=== PATIENT | male | born 2000 | race Hispanic/Latino ===

== ENCOUNTER 2021-03-31 12:11 | Observation (INO) | payer OTHER ==
[~2021-03-31] VITALS: Ht 162.6 cm; Wt 78.8 kg
[2021-03-31 13:59] LABS: BASO # 0.1 10^3/uL (0.0-0.2); BASO % 0.6 % (0.0-1.0); EOS # 0.2 10^3/uL (0.0-0.5); EOS % 2.4 % (0.0-3.0); HEMATOCRIT 43.7 % (42.0-52.0); HEMOGLOBIN 14.4 g/dl (13.5-17.5); LYMPH # 1.8 10^3/uL (1.5-5.0); LYMPH % 19.1 % (24.0-44.0); MEAN CORPUSCULAR HEMOGLOBIN 30.4 pg (27.0-33.0); MEAN CORPUSCULAR VOLUME 92.4 fl (80.0-96.0); MONO # 0.9 10^3/uL (0.0-0.8); MONO % 9.8 % (2.0-8.0); NEUTROPHILS # 6.4 10^3/uL (1.5-8.5); NEUTROPHILS % 67.8 % (36.0-66.0); PLATELET COUNT, AUTOMATED 388 10^3/uL (150-450); RED BLOOD COUNT 4.73 10^6/uL (4.30-6.10); WHITE BLOOD COUNT 9.4 10^3/uL (4.0-10.0)
[2021-03-31] MEDS ORDERED: PENI1TAB17 PO (14:08)
[2021-03-31] MEDS ORDERED: IBUP-1022 PO (14:08)
[2021-03-31 14:36] LABS: ALBUMIN 3.6 GM/DL (3.2-5.2); BILIRUBIN,DIRECT 0.2 MG/DL (0.0-0.2); BILIRUBIN,TOTAL 0.5 MG/DL (0.2-1.0); C REACTIVE PROTEIN QUANTITATIV 4.26 MG/DL (0.00-0.30); TOTAL PROTEIN 7.4 GM/DL (6.4-8.2)
[2021-03-31] MEDS ORDERED: ISOVUE-370 76% 100ML VIAL As Ordered ONE (14:38)
[2021-03-31] MEDS ORDERED: NS 1,000 ML IV ONE (14:40)
[2021-03-31] MEDS ORDERED: LR 1,000 ML IV SCH ×2 (17:25→20:50)
[2021-03-31] MEDS ORDERED: CLINDAMYCIN 900 MG in IV 1 EA IV ONE (17:25)
[2021-03-31] MEDS ORDERED: dexameTHASONE 20MG/5ML VIAL (J1100 PER 1MG) IV ONE (17:25)
[2021-03-31] MEDS ORDERED: MORPHINE 4 MG/ML 1ML VIAL/SYRINGE (J2270) IV ONE (17:25)
[2021-03-31] MEDS ORDERED: IBUP80TA PO (17:43)
[2021-03-31] MEDS ORDERED: HOME MED LIST COMPLETE! XX SCH (17:45)
[2021-03-31] MEDS ORDERED: ONDANSETRON 4MG/2ML VIAL IV PRN ×2 (18:30→20:50)
[2021-03-31] MEDS ORDERED: MORPHINE 4 MG/ML 1ML VIAL/SYRINGE (J2270) IV PRN (18:30)
[2021-03-31] MEDS ORDERED: LIDOCAINE W/EPINEPHRINE 1% 20ML VIAL As Ordered ONE (19:04)
[2021-03-31] MEDS ORDERED: CLINDAMYCIN INJ 900MG/6ML VIAL As Ordered ONE (19:05)
[2021-03-31] MEDS ORDERED: dexameTHASONE 4 MG/ML 1ML VIAL (J1100 PER 1MG) As Ordered ONE (20:12)
[2021-03-31] MEDS ORDERED: propofoL 200 MG/20 ML VIAL As Ordered ONE (20:12)
[2021-03-31] MEDS ORDERED: MIDAZOLAM INJ 2MG/2ML VIAL (J2250 PER 1MG) As Ordered ONE (20:12)
[2021-03-31] MEDS ORDERED: NALOXONE INJ 0.4MG/1ML VIAL (J2310 PER 1MG) As Ordered ONE (20:12)
[2021-03-31] MEDS ORDERED: LIDOCAINE 2% 100MG/5ML SDV (FOR ANES.) As Ordered ONE (20:12)
[2021-03-31] MEDS ORDERED: fentaNYL 250 MCG/5 ML INJECTION As Ordered ONE (20:12)
[2021-03-31] MEDS ORDERED: ACETAMINOPHEN 1000MG 100ML IV BTL (OFIRMEV) (J0131 PER 10MG) As Ordered ONE (20:12)
[2021-03-31] MEDS ORDERED: SUGAMMADEX SODIUM 500 MG/5 ML VIAL (BRIDION) As Ordered ONE (20:12)
[2021-03-31] MEDS ORDERED: ROCURONIUM BROMIDE 50 MG/5 ML VIAL As Ordered ONE (20:12)
[2021-03-31] MEDS ORDERED: ONDANSETRON 4MG/2ML VIAL As Ordered ONE (20:12)
[2021-03-31] MEDS ORDERED: HYDROMORPHONE HCL 0.5 MG/ 0.5 ML SYRINGE (J1170 PER 1) IV PRN (20:50)
[2021-03-31] MEDS ORDERED: fentaNYL 100 MCG/2 ML INJECTION IV PRN (20:50)
[2021-03-31] MEDS ORDERED: oxyCODONE 5MG TAB PO PRN (20:50)
[2021-03-31 21:00] VITALS: BP 129/69
[2021-03-31 21:30] VITALS: BP 115/55
[2021-03-31 22:21] VITALS: BP 116/62
[2021-03-31 23:31] VITALS: BP 115/62
[2021-04-01] VITALS: BP 117/60
[2021-04-01] MEDS: CLINDAMYCIN 600 MG in IV 1 EA IV SCH ×2 (01:01→07:38)
[2021-04-01 01:26] VITALS: BP 122/62
[2021-04-01 03:59] VITALS: BP 116/57
[2021-04-01 07:49] LABS: HEMOGLOBIN 14.6 g/dl (13.5-17.5); MEAN CORPUSCULAR HEMOGLOBIN 30.5 pg (27.0-33.0); MEAN CORPUSCULAR VOLUME 89.8 fl (80.0-96.0); PLATELET COUNT, AUTOMATED 429 10^3/uL (150-450); RED BLOOD COUNT 4.79 10^6/uL (4.30-6.10); WHITE BLOOD COUNT 12.3 10^3/uL (4.0-10.0)
[2021-04-01 08:08] LABS: ALBUMIN 3.3 GM/DL (3.2-5.2); ALT/SGPT 79 U/L (12-78); BILIRUBIN,TOTAL 0.7 MG/DL (0.2-1.0); BLOOD UREA NITROGEN 7 MG/DL (7-18); CALCIUM LEVEL 9.1 MG/DL (8.5-10.1); CARBON DIOXIDE LEVEL 28 MEQ/L (21-32); CHLORIDE LEVEL 102 MEQ/L (98-107); CREATININE FOR GFR 0.92 MG/DL (0.70-1.30); GLOMERULAR FILTRATION RATE > 60.0 (>60); GLUCOSE, FASTING 129 MG/DL (70-100); MAGNESIUM LEVEL 2.1 MG/DL (1.8-2.4); POTASSIUM SERUM 4.4 MEQ/L (3.5-5.1); SODIUM LEVEL 137 MEQ/L (136-145); TOTAL PROTEIN 7.9 GM/DL (6.4-8.2)
[2021-04-01] MEDS ORDERED: REMDESIVIR 200 MG in NS 250 ML IV ONE (12:00)
[2021-04-01] MEDS ORDERED: AUGM500T34 PO (12:19)
[2021-04-01 13:28] VITALS: BP 106/56
[2021-04-01] MEDS ORDERED: SODIUM CHLORIDE 0.9% INJ 10 ML SYR IV ONE (14:00)
[2021-04-02] MEDS ORDERED: REMDESIVIR 100 MG in NS 250 ML IV SCH (12:00)
[2021-04-02] MEDS ORDERED: SODIUM CHLORIDE 0.9% INJ 10 ML SYR IV SCH (13:00)
== END 2021-04-01 14:18 | disposition home or self-care (01) ==
LOC: M ED 12:11 → M ED INP 17:36 → ENRESERV 19:48 → M 4MAIN 21:00
PROVIDERS: ADMIT Internal Medicine; ATTEND Internal Medicine
DX: J36 Peritonsillar abscess (principal); R29.898 Other symptoms and signs involving the musculoskeletal system; R59.0 Localized enlarged lymph nodes; U07.1 COVID-19; Z79.2 Long term (current) use of antibiotics
CPT/HCPCS: 36415; 42700; 70491; 80047; 80053; 80076; 83690; 83735; 85025; 85027; 85652; 86140; 87070; 87075; 87076; 87077; 87186; 87205; 87426; 87430; 96365; 96375; 96376; 99284; J0131; J0248; J1100; J2250; J2270; J2310; J2405; J3010; Q9967

== ENCOUNTER 2021-06-20 06:49 | Day surgery (SDC) | payer OTHER ==
[~2021-06-20] VITALS: Ht 162.6 cm; Wt 78.0 kg
[~2021-06-20 06:49] MED LIST: AUGM500T34 PO; IBUP-1022 PO; IBUP80TA PO; LR 1,000 ML IV ONE; PENI1TAB17 PO; dexameTHASONE 4 MG/ML 1ML VIAL (J1100 PER 1MG) IV ONE
[2021-06-20] MEDS ORDERED: dexameTHASONE 4 MG/ML 1ML VIAL (J1100 PER 1MG) As Ordered ONE (09:06)
[2021-06-20] MEDS ORDERED: ROCURONIUM BROMIDE 50 MG/5 ML VIAL As Ordered ONE (09:06)
[2021-06-20] MEDS ORDERED: ONDANSETRON 4MG/2ML VIAL As Ordered ONE (09:06)
[2021-06-20] MEDS ORDERED: propofoL 200 MG/20 ML VIAL As Ordered ONE (09:06)
[2021-06-20] MEDS ORDERED: LIDOCAINE 2% 100MG/5ML SDV (FOR ANES.) As Ordered ONE (09:06)
[2021-06-20] MEDS ORDERED: fentaNYL 100 MCG/2 ML INJECTION As Ordered ONE ×2 (09:06→09:51)
[2021-06-20] MEDS ORDERED: MIDAZOLAM INJ 2MG/2ML VIAL (J2250 PER 1MG) As Ordered ONE (09:06)
[2021-06-20] MEDS ORDERED: ACETAMINOPHEN 1000MG 100ML IV BTL (OFIRMEV) (J0131 PER 10MG) As Ordered ONE (09:07)
[2021-06-20] MEDS ORDERED: fentaNYL 100 MCG/2 ML INJECTION IV PRN (10:35)
[2021-06-20] MEDS ORDERED: ONDANSETRON 4MG/2ML VIAL IV PRN (10:35)
[2021-06-20] MEDS ORDERED: LR 1,000 ML IV SCH ×2 (10:35)
[2021-06-20] MEDS ORDERED: oxyCODONE 5MG TAB PO PRN (10:35)
[2021-06-20 11:26] VITALS: BP 134/63
== END 2021-06-20 12:16 | disposition home or self-care (01) ==
LOC: M SDC 06:49
PROVIDERS: ATTEND Otolaryngology
DX: J36 Peritonsillar abscess (principal); R06.83 Snoring; F17.290 Nicotine dependence, other tobacco product, uncomplicated
CPT/HCPCS: 42826; 88302; J0131; J1100; J2250; J2405; J3010

== ENCOUNTER 2021-12-24 18:33 | Emergency (ER) | payer OTHER ==
[~2021-12-24] VITALS: Ht 162.6 cm; Wt 84.7 kg
[~2021-12-24 18:33] MED LIST changes: -LR 1,000 ML IV ONE; -dexameTHASONE 4 MG/ML 1ML VIAL (J1100 PER 1MG) IV ONE
[2021-12-24 20:10] LABS: HEMATOCRIT 45.6 % (42.0-52.0); HEMOGLOBIN 15.6 g/dl (13.5-17.5); MEAN CORPUSCULAR HEMOGLOBIN 30.7 pg (27.0-33.0); MEAN CORPUSCULAR HGB CONC 34.2 g/dl (32.0-36.5); MEAN CORPUSCULAR VOLUME 89.8 fl (80.0-96.0); PLATELET COUNT, AUTOMATED 346 10^3/uL (150-450); RED BLOOD COUNT 5.08 10^6/uL (4.30-6.10); WHITE BLOOD COUNT 10.8 10^3/uL (4.0-10.0)
[2021-12-24 21:09] LABS: ACETAMINOPHEN LEVEL < 2.0 UG/ML (10.0-30.0); ALBUMIN 4.2 GM/DL (3.2-5.2); ALT/SGPT 155 U/L (12-78); BILIRUBIN,DIRECT 0.1 MG/DL (0.0-0.2); BILIRUBIN,TOTAL 0.4 MG/DL (0.2-1.0); BLOOD UREA NITROGEN 7 MG/DL (7-18); CALCIUM LEVEL 9.7 MG/DL (8.5-10.1); CARBON DIOXIDE LEVEL 30 MEQ/L (21-32); CHLORIDE LEVEL 103 MEQ/L (98-107); CREATININE FOR GFR 1.17 MG/DL (0.70-1.30); ETHYL ALCOHOL (ETHANOL) < 0.003 % (0.000-0.010); GLOMERULAR FILTRATION RATE > 60.0 (>60); GLUCOSE, FASTING 100 MG/DL (70-100); SALICYLATE LEVEL < 1.7 MG/DL (5.0-30.0); SODIUM LEVEL 139 MEQ/L (136-145)
[2021-12-24 21:10] LABS: AMPHETAMINES LEVEL URINE NEGATIVE (NEGATIVE); BARBITURATES URINE NEGATIVE (NEGATIVE); BENZODIAZEPINES URINE NEGATIVE (NEGATIVE); CANNABINOIDS URINE NEGATIVE (NEGATIVE); COCAINE METABOLITE URINE NEGATIVE (NEGATIVE); METHADONE URINE NEGATIVE (NEGATIVE); OPIATES URINE NEGATIVE (NEGATIVE); PHENCYCLIDINE URINE NEGATIVE (NEGATIVE)
[2021-12-24 21:25] VITALS: BP 155/99
== END 2021-12-24 22:04 | disposition home or self-care (01) ==
LOC: M ED 18:33
DX: Z04.6 Encounter for general psychiatric examination, requested by authority (principal); F41.9 Anxiety disorder, unspecified; F32.A Depression, unspecified; F17.290 Nicotine dependence, other tobacco product, uncomplicated

== ENCOUNTER → 2022-04-26 | Outpatient (CLI) | payer OTHER | LOC: M PLAIMG 12:51 | PROVIDERS: ATTEND Nurse Practitioner Family | DX: R07.9 Chest pain, unspecified (principal); M25.511 Pain in right shoulder; M25.512 Pain in left shoulder; M25.551 Pain in right hip; M25.552 Pain in left hip ==